=== PATIENT | female | born 1970 | race African-American/Black ===

== ENCOUNTER 2016-08-13 11:46 | Emergency (ER) | payer MEDICAID, MEDICARE ==
[2016-08-13 13:28] LABS: Basophils % (Auto) 0.3 % (0.0-1.8); Eosinophils % (Auto) 2.3 % (0.0-4.3); Hematocrit 40.9 % (30.3-42.9); Hemoglobin 13.8 gm/dl (10.1-14.3); Mean Corpuscular HGB Conc 34 % (30-34); Mean Corpuscular Hemoglobin 29 pg (28-32); Mean Corpuscular Volume 86 fl (79-97); Platelet Count 275 K/mm3 (140-440); Red Blood Count 4.75 M/mm3 (3.65-5.03); Red Cell Distribution Width 12.4 % (13.2-15.2); White Blood Count 7.7 K/mm3 (4.5-11.0)
[2016-08-13 13:58] LABS: Blood Urea Nitrogen 10 mg/dL (7-17); Calcium 9.3 mg/dL (8.4-10.2); Carbon Dioxide 25 mmol/L (22-30); Chloride 99.3 mmol/L (98-107); Glucose 84 mg/dL (65-100); Sodium 137 mmol/L (137-145)
[2016-08-13 14:00] LABS: Anion Gap 17 mmol/L
[2016-08-13 14:01] LABS: Potassium 4.7 mmol/L (3.6-5.0)
[2016-08-13 23:22] VITALS: BP 125/77
--- NOTE | 2016-08-13 23:57 | Emergency Department Report ---
ED Chest Pain HPI - General Chief Complaint: Chest Pain Stated Complaint: CHEST PAIN/SOB Time Seen by Provider: 08/13/16 22:17 Source: patient Mode of arrival: Ambulatory Limitations: Language Barrier - History of Present Illness Initial Comments: 45-year-old female presents to the emergency department complaining of chest pain. Patient states she has been having intermittent, midsternal chest pain for one month. The pain has gotten worse over the past 2 days. She states the pain radiates into her back. She describes a sharp pain. She denies difficulty breathing, nausea, vomiting, dizziness, or diaphoresis. She denies pain at this time. There are no other complaints. MD Complaint: chest pain -: Gradual, month(s) (1) Onset: during rest Pain Location: substernal Pain Radiation: back Severity: moderate Severity scale (0 -10): 5 Quality: sharp Consistency: intermittent, now resolved Improves With: nothing Worsens With: nothing re: denies: nausea, vomting, diaphoresis, dyspnea Treatments Prior to Arrival: none Aspirin use within the Past 7 Days: (0) No - Related Data Previous Rx's Medication Instructions Recorded Last Taken Type Ibuprofen [Motrin] 800 mg PO Q8HR PRN #20 tablet 08/13/16 Unknown Rx Allergies Allergy/AdvReac Type Severity Reaction Status Date / Time No Known Allergies Allergy Verified 02/06/14 10:28 Heart Score - HEART Score History: Slightly suspicious EKG: Normal Age: 45-65 Risk factors: No known risk factors Troponin: < normal limit HEART Score: 1 ED Review of Systems ROS: Stated complaint: CHEST PAIN/SOB Other details as noted in HPI Comment: All other systems reviewed and negative Cardiovascular: chest pain ED Past Medical Hx - Past Medical History Previous Medical History?: No Additional medical history: denies - Surgical History Past Surgical History?: No Additional Surgical History: denies - Family History Family history: no significant - Social History Smoking Status: Never Smoker Substance Use Type: None - Medications Home Medications: Home Medications Medication Instructions Recorded Confirmed Last Taken Type Ibuprofen [Motrin] 800 mg PO Q8HR PRN #20 tablet 08/13/16 Unknown Rx ED Physical Exam - General Limitations: Language Barrier General appearance: alert, in no apparent distress - Head Head exam: Present: atraumatic, normocephalic - Eye Eye exam: Present: normal appearance, PERRL, EOMI - ENT ENT exam: Present: normal exam, normal orophraynx, mucous membranes moist - Neck Neck exam: Present: normal inspection, full ROM. Absent: tenderness - Respiratory Respiratory exam: Present: normal lung sounds bilaterally. Absent: respiratory distress, chest wall tenderness - Cardiovascular Cardiovascular Exam: Present: regular rate, normal rhythm, normal heart sounds - GI/Abdominal GI/Abdominal exam: Present: soft, normal bowel sounds. Absent: distended, tenderness - Extremities Exam Extremities exam: Present: normal inspection, full ROM. Absent: tenderness - Back Exam Back exam: Present: normal inspection, full ROM. Absent: tenderness - Neurological Exam Neurological exam: Present: alert, oriented X3. Absent: motor sensory deficit - Skin Skin exam: Present: warm, dry, intact ED Course Vital Signs 08/13/16 08/13/16 08/13/16 12:03 22:20 22:33 Temperature 98.2 F 98.3 F Pulse Rate 62 90 60 Respiratory 18 18 21 Rate Blood Pressure 119/91 Blood Pressure 139/82 [Right] O2 Sat by Pulse 100 99 98 Oximetry 08/13/16 08/13/16 08/13/16 22:41 22:51 23:00 Temperature Pulse Rate 58 L 62 57 L Respiratory 14 19 19 Rate Blood Pressure 139/82 139/82 125/77 Blood Pressure [Right] O2 Sat by Pulse 100 100 99 Oximetry 08/13/16 23:11 Temperature Pulse Rate 65 Respiratory 17 Rate Blood Pressure 125/77 Blood Pressure [Right] O2 Sat by Pulse 100 Oximetry ANNY score - Anny Score Age > 65: (0) No Aspirin use within the Past 7 Days: (0) No 3 or more CAD Risk Factors: (0) No 2 or more Angina events in past 24 hrs: (0) No Known CAD with more than 50% Stenosis: (0) No Elevated Cardiac Markers: (0) No ST Deviation Greater than 0.5mm: (0) No ANNY Score: 0 ED Medical Decision Making - Lab Data Result diagrams: 08/13/16 13:01 08/13/16 13:01 - EKG Data -: EKG Interpreted by Sd EKG shows normal: sinus rhythm, axis, intervals, QRS complexes, ST-T waves Rate: normal - EKG Data When compared to previous EKG there are: previous EKG unavailable Interpretation: normal EKG - Medical Decision Making Lab results reviewed and discussed with the patient. Patient has remained pain- free in the emergency department. She has had a normal ECG and 3 negative troponins. Patient will be discharged home at this time to follow up with her primary care physician. - Differential Diagnosis ACS, atypical chest pain, chest wall pain, GERD Critical care attestation.: If time is entered above; I have spent that time in minutes in the direct care of this critically ill patient, excluding procedure time. ED Disposition Clinical Impression: Non-cardiac chest pain Disposition: TO HOME OR SELFCARE Is pt being admited?: No Condition: Stable Instructions: Chest Pain (ED) Prescriptions: Ibuprofen [Motrin] 800 mg PO Q8HR PRN #20 tablet PRN Reason: Pain Referrals: PRIMARY CARE, [Primary Care Provider] - 3-5 Days Time of Disposition: 23:53
== END 2016-08-14 | disposition home or self-care (01) ==
LOC: ED 11:46
DX: R07.89 Other chest pain (principal)
CPT/HCPCS: 36415; 80048; 84484; 84703; 85025; 93005; 93010; 99284

== ENCOUNTER 2016-11-16 11:40 | Emergency (ER) | payer MEDICARE ==
--- NOTE | 2016-11-16 12:31 | Emergency Department Report ---
Chief Complaint: Dizziness Stated Complaint: DIZZY - HPI History of Present Illness: 45F PMH GERD sent by GI physician for weakness workup. pt c/o weakness, fatigue , excessive tiredness. had upper endoscopy 10/27 - Review of Systems: weakness for 3 weeks - Exam Vital Signs: Vital Signs 11/16/16 12:19 Temperature 98.4 F Pulse Rate 71 Respiratory 16 Rate Blood Pressure 128/92 O2 Sat by Pulse 98 Oximetry Physical Exam: s1/s2, lungs clear MSE screening note: Focused history and physical exam performed. Due to findings the following was ordered: MSE: weakness 1- ekg, ua, labs ED Disposition for MSE Condition: Stable
[2016-11-16 12:58] LABS: Basophils % (Auto) 0.4 % (0.0-1.8); Eosinophils % (Auto) 2.4 % (0.0-4.3); Hematocrit 40.3 % (30.3-42.9); Hemoglobin 13.6 gm/dl (10.1-14.3); Mean Corpuscular HGB Conc 34 % (30-34); Mean Corpuscular Hemoglobin 29 pg (28-32); Mean Corpuscular Volume 87 fl (79-97); Platelet Count 271 K/mm3 (140-440); Red Blood Count 4.66 M/mm3 (3.65-5.03); Red Cell Distribution Width 12.2 % (13.2-15.2); White Blood Count 5.9 K/mm3 (4.5-11.0)
[2016-11-16 13:18] LABS: Anion Gap 15 mmol/L; Blood Urea Nitrogen 12 mg/dL (7-17); Calcium 9.1 mg/dL (8.4-10.2); Carbon Dioxide 27 mmol/L (22-30); Chloride 101.9 mmol/L (98-107); Glucose 113 mg/dL (65-100); Potassium 3.3 mmol/L (3.6-5.0); Sodium 141 mmol/L (137-145)
[2016-11-16 13:37] LABS: Bilirubin,Urine NEG (Negative); Blood,Urine NEG (Negative); Ketones,Urine NEG (Negative); Leukocyte Esterase,Urine NEG (Negative); Mucus,Urine FEW /HPF; Nitrite,Urine NEG (Negative); Protein,Urine <15 mg/dL mg/dL (Negative); RBC,Urine < 1.0 /HPF (0.0-6.0); Urobilinogen,Urine < 2.0 mg/dL (<2.0)
[2016-11-16 14:15] LABS: Alanine Aminotransferase 42 units/L (7-56); Albumin 4.4 g/dL (3.9-5); Albumin/Globulin Ratio 1.3 %; Alkaline Phosphatase 50 units/L (35-129); Creatine Kinase 101 units/L (30-135); Total Protein 7.8 g/dL (6.3-8.2)
[2016-11-16 14:19] LABS: Bilirubin,Direct < 0.2 mg/dL (0-0.2)
--- NOTE | 2016-11-16 18:28 | Cat Scan Report ---
FINAL REPORT PROCEDURE: CT HEAD/BRAIN WO CON TECHNIQUE: Computerized tomography of the head was performed without contrast material. HISTORY: dizziness, weakness, headache COMPARISON: No prior studies are available for comparison. FINDINGS: Visualized portions of the paranasal sinuses and mastoid air cells are clear. No calvarial fracture is seen. Cerebral ventricles are normal in size. Mild volume loss in the medial aspect of the right temporal lobe near the hippocampus. This finding can be seen with mesial temporal sclerosis and correlation with any seizure activity is recommended. MRI of the brain using seizure protocol may be useful in evaluation. No acute intracranial hemorrhage or mass effect is seen. IMPRESSION: Mild volume loss is seen in the medial aspect of the right temporal lobe near the region of the hippocampus. Findings could be due to old infarct or injury. Mesial temporal sclerosis could cause a similar appearance. Correlation with MRI of the brain using seizure protocol may be useful.
[2016-11-17 00:43] VITALS: BP 154/89
--- NOTE | 2016-11-17 01:01 | Emergency Department Report ---
ED General Adult HPI - General Chief complaint: Dizziness Stated complaint: DIZZY Source: patient Mode of arrival: Ambulatory Limitations: No Limitations - History of Present Illness Initial comments: This is a 45-year-old female. The patient presents to the ER complaining of weakness and generalized dizziness. This has been going on for 3 weeks. it does not have exacerbating or relieving factors. There is no pain at this time , with the exception of lower back pain there is no posterior leg pain, there is no posterior leg swelling, no recent surgeries, no chest pain. No ataxia, no blurry vision. . -: Gradual, week(s) Location: back Severity scale (0 -10): 0 Consistency: intermittent Improves with: none Worsens with: none Associated Symptoms: loss of appetite, malaise, weakness - Related Data Home Medications Medication Instructions Recorded Confirmed Last Taken Meclizine [Antivert] 25 mg PO TID PRN 11/17/16 11/17/16 11/16/16 Omeprazole Magnesium [PriLOSEC] 20 mg PO QDAY 11/17/16 11/17/16 11/16/16 Allergies Allergy/AdvReac Type Severity Reaction Status Date / Time No Known Allergies Allergy Verified 02/06/14 10:28 ED Review of Systems ROS: Stated complaint: DIZZY Other details as noted in HPI Constitutional: malaise, weakness. denies: fever Eyes: denies: eye discharge, vision change ENT: denies: epistaxis Respiratory: denies: cough Cardiovascular: denies: chest pain Gastrointestinal: denies: abdominal pain Genitourinary: denies: dysuria Musculoskeletal: back pain Skin: denies: lesions Neurological: weakness Psychiatric: anxiety ED Past Medical Hx - Past Medical History Previous Medical History?: No Additional medical history: denies - Surgical History Past Surgical History?: No Additional Surgical History: denies - Social History Smoking Status: Never Smoker Substance Use Type: None - Medications Home Medications: Home Medications Medication Instructions Recorded Confirmed Last Taken Type Meclizine [Antivert] 25 mg PO TID PRN 11/17/16 11/17/16 11/16/16 History Omeprazole Magnesium [PriLOSEC] 20 mg PO QDAY 11/17/16 11/17/16 11/16/16 History ED Physical Exam - General Limitations: No Limitations General appearance: alert, in no apparent distress - Head Head exam: Present: atraumatic, normocephalic - Eye Eye exam: Present: normal appearance, PERRL, EOMI, other (visual acuity intact to finger counting, color perception, reading at a close distance). Absent: nystagmus - ENT ENT exam: Present: normal exam, normal orophraynx, mucous membranes moist, TM's normal bilaterally, normal external ear exam, other (there is no mastoid tenderness) - Neck Neck exam: Present: normal inspection, full ROM. Absent: tenderness, meningismus - Respiratory Respiratory exam: Present: normal lung sounds bilaterally. Absent: respiratory distress, wheezes, rales, rhonchi, stridor, chest wall tenderness, accessory muscle use, decreased breath sounds, prolonged expiratory - Cardiovascular Cardiovascular Exam: Present: regular rate, normal rhythm, normal heart sounds. Absent: bradycardia, tachycardia, irregular rhythm, systolic murmur, diastolic murmur, rubs, gallop - GI/Abdominal GI/Abdominal exam: Present: soft, normal bowel sounds. Absent: distended, tenderness, guarding, rebound, rigid, pulsatile mass - Extremities Exam Extremities exam: Present: normal inspection, full ROM, normal capillary refill. Absent: tenderness, pedal edema, joint swelling, calf tenderness - Back Exam Back exam: Present: normal inspection, full ROM. Absent: tenderness, CVA tenderness (R), CVA tenderness (L), muscle spasm, paraspinal tenderness, vertebral tenderness - Neurological Exam Neurological exam: Present: alert, oriented X3, normal gait, other (Extraocular movements intact. Tongue midline. No facial droop. Facial sensation intact to light touch in the V1, V2, V3 distribution bilaterally. 5 and 5 strength in 4 extremities.. Sensation is intact to light touch in 4 extremities.). Absent : motor sensory deficit - Psychiatric Psychiatric exam: Present: normal affect, normal mood - Skin Skin exam: Present: warm, dry, intact, normal color. Absent: rash ED Course Vital Signs 11/16/16 11/16/16 11/17/16 12:19 23:44 00:39 Temperature 98.4 F 97.4 F L Pulse Rate 71 64 83 Respiratory 16 18 18 Rate Blood Pressure 128/92 178/108 Blood Pressure 154/89 [Left] O2 Sat by Pulse 98 100 100 Oximetry ED Medical Decision Making - Lab Data Result diagrams: 11/16/16 12:37 11/16/16 12:37 Vital Signs 11/16/16 11/16/16 11/17/16 12:19 23:44 00:39 Temperature 98.4 F 97.4 F L Pulse Rate 71 64 83 Respiratory 16 18 18 Rate Blood Pressure 128/92 178/108 Blood Pressure 154/89 [Left] O2 Sat by Pulse 98 100 100 Oximetry Lab Results 11/16/16 11/16/16 11/16/16 Range/Units 12:37 12:37 12:37 WBC 5.9 (4.5-11.0) K/mm3 RBC 4.66 (3.65-5.03) M/mm3 Hgb 13.6 (10.1-14.3) gm/dl Hct 40.3 (30.3-42.9) % MCV 87 (79-97) fl MCH 29 (28-32) pg MCHC 34 (30-34) % RDW 12.2 L (13.2-15.2) % Plt Count 271 (140-440) K/mm3 Lymph % (Auto) 39.9 H (13.4-35.0) % Maury % (Auto) 8.9 H (0.0-7.3) % Eos % (Auto) 2.4 (0.0-4.3) % Baso % (Auto) 0.4 (0.0-1.8) % Lymph # 2.4 (1.2-5.4) K/mm3 Maury # 0.5 (0.0-0.8) K/mm3 Eos # 0.1 (0.0-0.4) K/mm3 Baso # 0.0 (0.0-0.1) K/mm3 Seg Neutrophils % 48.4 (40.0-70.0) % Seg Neutrophils # 2.9 (1.8-7.7) K/mm3 Sodium 141 (137-145) mmol/L Potassium 3.3 L (3.6-5.0) mmol/L Chloride 101.9 (98-107) mmol/L Carbon Dioxide 27 (22-30) mmol/L Anion Gap 15 mmol/L BUN 12 (7-17) mg/dL Creatinine 0.5 L (0.7-1.2) mg/dL Estimated GFR > 60 ml/min BUN/Creatinine Ratio 24.00 % Glucose 113 H (65-100) mg/dL Calcium 9.1 (8.4-10.2) mg/dL Total Bilirubin 0.40 (0.1-1.2) mg/dL Direct Bilirubin < 0.2 (0-0.2) mg/dL AST 31 (5-40) units/L ALT 42 (7-56) units/L Alkaline Phosphatase 50 (35-129) units/L Total Creatine Kinase 101 (30-135) units/L Troponin T < 0.010 (0.00-0.029) ng/mL Total Protein 7.8 (6.3-8.2) g/dL Albumin 4.4 (3.9-5) g/dL Albumin/Globulin Ratio 1.3 % HCG, Quant (0-4) mIU/mL Urine Color (Yellow) Urine Turbidity (Clear) Urine pH (5.0-7.0) Ur Specific [place] (1.003-1.030) Urine Protein (Negative) mg/dL Urine Glucose (UA) (Negative) mg/dL Urine Ketones (Negative) mg/dL Urine Blood (Negative) Urine Nitrite (Negative) Urine Bilirubin (Negative) Urine Urobilinogen (<2.0) mg/dL Ur Leukocyte Esterase (Negative) Urine WBC (Auto) (0.0-6.0) /HPF Urine RBC (Auto) (0.0-6.0) /HPF U Epithel Cells (Auto) (0-13.0) /HPF Urine Mucus /HPF Urine HCG, Qual (Negative) 11/16/16 11/16/16 Range/Units 12:37 12:41 WBC (4.5-11.0) K/mm3 RBC (3.65-5.03) M/mm3 Hgb (10.1-14.3) gm/dl Hct (30.3-42.9) % MCV (79-97) fl MCH (28-32) pg MCHC (30-34) % RDW (13.2-15.2) % Plt Count (140-440) K/mm3 Lymph % (Auto) (13.4-35.0) % Maury % (Auto) (0.0-7.3) % Eos % (Auto) (0.0-4.3) % Baso % (Auto) (0.0-1.8) % Lymph # (1.2-5.4) K/mm3 Maury # (0.0-0.8) K/mm3 Eos # (0.0-0.4) K/mm3 Baso # (0.0-0.1) K/mm3 Seg Neutrophils % (40.0-70.0) % Seg Neutrophils # (1.8-7.7) K/mm3 Sodium (137-145) mmol/L Potassium (3.6-5.0) mmol/L Chloride (98-107) mmol/L Carbon Dioxide (22-30) mmol/L Anion Gap mmol/L BUN (7-17) mg/dL Creatinine (0.7-1.2) mg/dL Estimated GFR ml/min BUN/Creatinine Ratio % Glucose (65-100) mg/dL Calcium (8.4-10.2) mg/dL Total Bilirubin (0.1-1.2) mg/dL Direct Bilirubin (0-0.2) mg/dL AST (5-40) units/L ALT (7-56) units/L Alkaline Phosphatase (35-129) units/L Total Creatine Kinase (30-135) units/L Troponin T (0.00-0.029) ng/mL Total Protein (6.3-8.2) g/dL Albumin (3.9-5) g/dL Albumin/Globulin Ratio % HCG, Quant < 2 (0-4) mIU/mL Urine Color Yellow (Yellow) Urine Turbidity Clear (Clear) Urine pH 5.0 (5.0-7.0) Ur Specific [place] 1.014 (1.003-1.030) Urine Protein <15 mg/dl (Negative) mg/dL Urine Glucose (UA) Neg (Negative) mg/dL Urine Ketones Neg (Negative) mg/dL Urine Blood Neg (Negative) Urine Nitrite Neg (Negative) Urine Bilirubin Neg (Negative) Urine Urobilinogen < 2.0 (<2.0) mg/dL Ur Leukocyte Esterase Neg (Negative) Urine WBC (Auto) 1.0 (0.0-6.0) /HPF Urine RBC (Auto) < 1.0 (0.0-6.0) /HPF U Epithel Cells (Auto) 2.0 (0-13.0) /HPF Urine Mucus Few /HPF Urine HCG, Qual Negative (Negative) - EKG Data 11/17/16 00:58 Normal sinus, 71 bpm, normal intervals, normal axis, not morphologically consistent with STEMI - Radiology Data Radiology results: report reviewed, image reviewed interpreted by me: X-ray of the chest is negative for acute disease Noncontrast CT scan of the brain negative for acute findings, mild volume loss noted in the medial aspect of the right temporal lobe in the region of the hippocampus. May represent old infarct or injury, mesial temporal sclerosis could cause a similar appearance. Correlation with MRI of the brain using seizure protocol may be useful. - Medical Decision Making Differential diagnosis: Conversion disorder, dehydration, anemia, , focal seizures, electrolyte derangement, Assessment and plan: 45-year-old female who has been having generalized weakness for over 3 weeks. She is afebrile, with reassuring vital signs, walks with a steady gait, has a GCS of 15, NIH score of 0, and has an unremarkable physical examination. Laboratory studies were unremarkable as well, with the exception of mild hypokalemia, this is repleted and corrected in the emergency department. There are no pulmonary embolus or DVT risk factors, the patient is low risk by well's criteria, and the patient is perc negative Noncontrast CT scan of the brain demonstrated incidental finding in the medial aspect of the right temporal lobe, patient did occasionally endorse some nonspecific tingling of her body. Her history and physical are not consistent with stroke or TIA, and there is no objective indication to admit the patient to the hospital at this time, ABCD 2 score of 0, ANNY score of 0, heart score of 0, patient can follow up with an outpatient primary care doctor and neurology specialist. She'll be discharged at this time. Critical care attestation.: If time is entered above; I have spent that time in minutes in the direct care of this critically ill patient, excluding procedure time. ED Disposition Clinical Impression: Weakness Disposition: DC-01 TO HOME OR SELFCARE Is pt being admited?: No Does the pt Need Aspirin: No Condition: Good Instructions: Weakness (ED) Additional Instructions: Continue current outpatient medications. Follow up with the primary care doctor or neurology specialist within the next month. CT scan of the brain demonstrated "volume loss noted in the medial aspect of the right temporal lobe near the region of the hippocampus. May represent old infarct or injury. Mesial temporal sclerosis could cause a similar appearance." Therefore, follow up with any of the neurology specialist as recommended. Return to the ER right away with fevers, chills, chest pain, shortness of breath, right or left sided weakness, numbness, chest pain, shortness of breath, confusion. Referrals: PRIMARY CARE, [Primary Care Provider] - 3-5 Days REBEKAH ESCOBAR MD [Staff Physician] - 3-5 Days SHEILA EDMONDSON MD [Staff Physician] - 3-5 Days KRISTY SHAIKH MD [Staff Physician] - 3-5 Days
[2016-11-17] MEDS ORDERED: K-DUR PO ONE (01:02)
--- NOTE | 2016-11-17 07:45 | XRay Report ---
ROUTINE CHEST, TWO VIEWS: HISTORY: Weakness. The trachea, heart, mediastinal contour, lung gaspar and bony thorax are unremarkable. IMPRESSION: Unremarkable chest x-ray.
== END 2016-11-17 01:11 | disposition home or self-care (01) ==
LOC: ED 11:40
DX: R53.1 Weakness (principal)
CPT/HCPCS: 36415; 70450; 71020; 80048; 80074; 81001; 81025; 82550; 84484; 84702; 85025; 87086; 93005; 93010

== ENCOUNTER 2018-10-31 07:42 | Outpatient (CLI) | payer MEDICARE ==
[2018-10-31 08:04] LABS: Hemoglobin 13.2 gm/dl (10.1-14.3); Mean Corpuscular HGB Conc 34 % (30-34); Mean Corpuscular Volume 87 fl (79-97); Platelet Count 243 K/mm3 (140-440); Red Cell Distribution Width 12.8 % (13.2-15.2)
[2018-10-31 08:27] LABS: Alanine Aminotransferase 20 units/L (7-56); Albumin 4.3 g/dL (3.9-5); BUN/Creatinine Ratio 23; Blood Urea Nitrogen 14 mg/dL (7-17); Calcium 9.2 mg/dL (8.4-10.2); HDL Cholesterol 45 mg/dL (40-59); Hemolysis Index 9; LDL Cholesterol,Direct 72 mg/dL (50-130)
== END 2018-10-31 07:43 | disposition home or self-care (01) ==
LOC: CT 07:42
PROVIDERS: ATTEND Internal Medicine
DX: R06.02 Shortness of breath (principal); R79.89 Other specified abnormal findings of blood chemistry
CPT/HCPCS: 36415; 80053; 80061; 82803; 84436; 84443; 85027

== ENCOUNTER 2018-11-22 07:38 | Outpatient (CLI) | payer MEDICARE ==
--- NOTE | 2018-11-22 09:39 | XRay Report ---
CHEST 2 VIEWS INDICATION: R06.02)SHORTNESS OF BREATHE. COMPARISON: 11/16/2016 FINDINGS: Support devices: None. Heart: Within normal limits. Pulmonary vasculature: Normal. Lungs/pleura: The lungs are normally expanded and clear. No pleural effusion. No pneumothorax. Additional findings: None. IMPRESSION: Normal chest. Signer Name: Mukesh Chandra MD Signed: 11/22/2018 9:35 AM Workstation Name: [id number]
--- NOTE | 2018-11-22 09:44 | Fluoroscopy Report ---
UPPER GI HISTORY: Gastroesophageal reflux. Neck pain TECHNIQUE: Single and double contrast barium technique utilized to evaluate the esophagus, stomach, and duodenal C-loop. FINDINGS: To begin the exam, swallowing was evaluated in the lateral position under direct fluorosco py. Swallowing was normal. No mucosal irregularity, mass, mass effect, or critical stenosis. There were no abnormal tertiary c ontractions as seen with dysmotility. 1 or 2 episodes of mild gastroesophageal reflux into the distal esophagus was witnessed during this exam. IMPRESSION: Mild esophageal reflux as described. No mucosal lesion or obstruction. Fluoroscopic time: 2.6 minutes Number of fluoroscopic images: 20 Signer Name: Anthony Nugent Jr, MD Signed: 11/22/2018 9:39 AM Workstation Name: [id number]
--- NOTE | 2018-11-22 10:50 | Nuclear Medicine Report ---
VENTILATION PERFUSION PULMONARY SCINTIGRAPHY HISTORY: Shortness of breath COMPARISON: 11/22/2018 chest radiograph. TECHNIQUE: Radiopharmaceutical was inhaled. Tc-99m-MAA was then injected. Ventilation and perfusion images were acquired. RADIOPHARMACEUTICAL: 17.3 mCi of xenon-133 inhaled 5.5 mCi of Tc-99m-MAA injected FINDINGS: VENTILATION: No significant air trapping or defect. PERFUSION: No significant segmental or non-segmental defect. Additional Findings: None. IMPRESSION: 1. Low probability for pulmonary embolism. Signer Name: Anthony Nugent Jr, MD Signed: 11/22/2018 10:45 AM Workstation Name: [id number]
== END 2018-11-22 07:39 | disposition home or self-care (01) ==
LOC: FLUORO 07:38
PROVIDERS: ATTEND Internal Medicine
DX: K21.9 Gastro-esophageal reflux disease without esophagitis (principal); R06.02 Shortness of breath; M54.2 Cervicalgia
CPT/HCPCS: 36415; 36600; 71046; 74247; 78582; 82803; 85379; A9540; A9558